=== PATIENT | female | born 1995 | race Caucasian/White ===

== ENCOUNTER 2017-06-04 15:56 | Observation (INO) | payer MEDICAID ==
[~2017-06-04] VITALS: Ht 160 cm; Wt 79.4 kg
[2017-06-04] MEDS ORDERED: PREN-380 PO (17:39)
== END 2017-06-04 21:11 | disposition home or self-care (01) ==
LOC: MLD 15:56
PROVIDERS: ADMIT Obstetrics & Gynecology; ATTEND Obstetrics & Gynecology
DX: O26.893 Other specified pregnancy related conditions, third trimester (principal); R10.9 Unspecified abdominal pain; Z3A.38 38 weeks gestation of pregnancy
CPT/HCPCS: 76805; G0378; Q0092; 59025; 81000

== ENCOUNTER 2017-06-11 16:07 | Inpatient (IN) | payer MEDICAID ==
[~2017-06-11] VITALS: Ht 160 cm; Wt 79.4 kg
[~2017-06-11 16:07] MED LIST: PREN-380 PO
[2017-06-11] MEDS ORDERED: PREN-546 PO (16:47)
[2017-06-11] MEDS ORDERED: AMPICILLIN 2,000 MG in NACL 0.9% MINI-BAG PLUS 100 ML IV SCH (17:15)
[2017-06-11 17:24] VITALS: BP 116/78
[2017-06-11] MEDS ORDERED: AMPICILLIN 2,000 MG VIAL ONE (18:53)
[2017-06-11 18:57] LABS: BASOPHILS # (AUTO) 0.2 K/uL (0.00-0.22); BASOPHILS % (AUTO) 1.3 % (0.0-2.0); EOSINOPHILS # (AUTO) 0.1 K/uL (0-0.4); EOSINOPHILS % (AUTO) 0.9 % (0.0-4.0); HEMATOCRIT 35.6 % (36-48); HEMOGLOBIN 12.2 g/dL (12.0-16.0); LYMPHOCYTES # (AUTO) 2.1 K/uL (2.5-16.5); LYMPHOCYTES % (AUTO) 17.1 % (20.5-51.1); MEAN CORPUSCULAR HEMOGLOBIN 30 pg (27-31); MEAN CORPUSCULAR HGB CONC 34 g/dL (33-37); MEAN CORPUSCULAR VOLUME 87 fL (80-94); MONOCYTES # (AUTO) 0.7 K/uL (0.8-1.0); NEUTROPHILS # (AUTO) 8.9 K/uL (1.8-7.7); NEUTROPHILS % (AUTO) 74.7 % (42.2-75.2); PLATELET COUNT (AUTO) 190 K/uL (140-450); RED BLOOD CELL COUNT(AUTO) 4.09 MIL/uL (4.20-5.40); RED CELL DISTRIBUTION WIDTH 12.3 % (11.6-13.7)
[2017-06-11] MEDS: LACTATED RINGERS 1,000 ML IV SCH (19:05)
[2017-06-11 19:32] LABS: ANION GAP 14.3 (8-16); CARBON DIOXIDE 22.7 mmol/L (21-32); CREATININE 0.6 mg/dL (0.6-1.3)
[2017-06-11 19:39] LABS: ALBUMIN 2.9 g/dL (3.4-5.0); TOTAL BILIRUBIN 0.1 mg/dL (0.0-1.0)
[2017-06-11] MEDS ORDERED: MISOPROSTOL 25 MCG TAB VG SCH (19:40)
[2017-06-11] MEDS ORDERED: MISOPROSTOL 25 MCG TAB ONE (19:45)
[2017-06-11] MEDS ORDERED: OXYTOCIN 20 UNITS in LACTATED RINGERS 1,000 ML IV SCH (20:02)
[2017-06-11 20:29] LABS: APPEARANCE,URINE CLEAR (CLEAR); BILIRUBIN,URINE NEGATIVE (NEGATIVE); BLOOD, URINE NEGATIVE (NEGATIVE); COLOR,URINE YELLOW (YELLOW); LEUKOCYTE ESTERASE ,URINE NEGATIVE (NEGATIVE); NITRITE, URINE NEGATIVE (NEGATIVE); UGLUCOSE NEGATIVE (NEGATIVE)
[2017-06-11] MEDS ORDERED: AMPICILLIN 1,000 MG VIAL ONE (23:06)
[2017-06-11] MEDS: AMPICILLIN 1,000 MG in NACL 0.9% MINI-BAG PLUS 50 ML IV SCH (23:10)
[2017-06-12] MEDS: LACTATED RINGERS 1,000 ML IV SCH ×3 (01:13→15:21)
[2017-06-12] MEDS ORDERED: AMPICILLIN 1,000 MG VIAL ONE ×4 (02:51→14:51)
[2017-06-12] MEDS: AMPICILLIN 1,000 MG in NACL 0.9% MINI-BAG PLUS 50 ML IV SCH ×4 (02:59→15:03)
[2017-06-12] MEDS ORDERED: OXYTOCIN 20 UNITS/LR PREMIX 1,000 ML IV ONE (03:39)
[2017-06-12] MEDS ORDERED: NALBUPHINE HYDROCHLORIDE 10 MG/ML VIAL ONE ×2 (08:49→13:13)
[2017-06-12] MEDS ORDERED: PROMETHAZINE 25 MG/ML VIAL ONE ×2 (08:50→13:14)
[2017-06-12] MEDS: NALBUPHINE HYDROCHLORIDE 10 MG/ML VIAL IVP PRN ×2 (08:59→13:21)
[2017-06-12] MEDS: PROMETHAZINE 25 MG/ML VIAL IVP PRN ×2 (09:00→13:20)
[2017-06-12] MEDS ORDERED: BUPIVACAINE 0.125%/NS PREMIX 250 ML ONE (13:40)
[2017-06-12] MEDS ORDERED: BUPIVACAINE 0.125%/NS PREMIX 250 ML EPI SCH (14:30)
[2017-06-12] MEDS ORDERED: OXYTOCIN 10 UNITS/ML VIAL ONE (20:08)
--- NOTE | 2017-06-13 10:47 | NUR ---
PATIENT HAS BEEN SCREENED AND CATEGORIZED LOW NUTRITION RISK. PATIENT WILL BE SEEN WITHIN 7 DAYS OF ADMISSION. 06/18/17 CHIQUIS KIM MBA, RD
[2017-06-13] MEDS ORDERED: OXYTOCIN 20 UNITS in LACTATED RINGERS 1,000 ML IV SCH (16:34)
[2017-06-13] MEDS ORDERED: oxyCODONE/APAP 5/325 MG 1 TAB TAB PO PRN (16:35)
[2017-06-13] MEDS ORDERED: BENZOCAINE/MENTHOL 20%-0.5% 60 GM CAN TP PRN (16:35)
[2017-06-13] MEDS ORDERED: MEASLES, MUMPS, AND RUBELLA 1 VIAL SQVAC PRN (16:35)
[2017-06-13] MEDS ORDERED: ACETAMINOPHEN 325 MG TAB PO PRN (16:35)
[2017-06-13] MEDS ORDERED: SODIUM PHOSPHATE 118 ML ENEM RC PRN (16:35)
[2017-06-13] MEDS ORDERED: BISACODYL 5 MG TABEC PO PRN (16:35)
[2017-06-13] MEDS ORDERED: INFLUENZA VIRUS VACCINE QUAD 0.5 ML SYR IMVAC SCH (21:10)
[2017-06-14 08:09] LABS: BASOPHILS # (AUTO) 0.2 K/uL (0.00-0.22); BASOPHILS % (AUTO) 1.2 % (0.0-2.0); EOSINOPHILS # (AUTO) 0.2 K/uL (0-0.4); EOSINOPHILS % (AUTO) 1.6 % (0.0-4.0); HEMATOCRIT 35.5 % (36-48); HEMOGLOBIN 12.1 g/dL (12.0-16.0); LYMPHOCYTES # (AUTO) 2.6 K/uL (2.5-16.5); LYMPHOCYTES % (AUTO) 20.6 % (20.5-51.1); MEAN CORPUSCULAR HEMOGLOBIN 30 pg (27-31); MEAN CORPUSCULAR HGB CONC 34 g/dL (33-37); MEAN CORPUSCULAR VOLUME 88 fL (80-94); MONOCYTES # (AUTO) 0.6 K/uL (0.8-1.0); NEUTROPHILS # (AUTO) 9.1 K/uL (1.8-7.7); NEUTROPHILS % (AUTO) 71.6 % (42.2-75.2); PLATELET COUNT (AUTO) 180 K/uL (140-450); RED BLOOD CELL COUNT(AUTO) 4.04 MIL/uL (4.20-5.40); RED CELL DISTRIBUTION WIDTH 12.8 % (11.6-13.7); WHITE BLOOD COUNT (AUTO) 12.7 K/uL (4.8-10.8)
== END 2017-06-14 15:30 | disposition home or self-care (01) | DRG 560 ==
LOC: MLD 16:07 → MFCC 06-12 23:45
PROVIDERS: ADMIT Obstetrics & Gynecology; ATTEND Obstetrics & Gynecology
PROC: 10E0XZZ Delivery of Products of Conception, External Approach (ICD-10-PCS; principal; 2017-06-12)
PROC: 10907ZC Drainage of Amniotic Fluid, Therapeutic from Products of Conception, Via Natural or Artificial Opening (ICD-10-PCS; 2017-06-12)
PROC: 3E033VJ Introduction of Other Hormone into Peripheral Vein, Percutaneous Approach (ICD-10-PCS; 2017-06-12)
PROC: 00HU33Z Insertion of Infusion Device into Spinal Canal, Percutaneous Approach (ICD-10-PCS; 2017-06-12)
PROC: 3E0R3BZ Introduction of Anesthetic Agent into Spinal Canal, Percutaneous Approach (ICD-10-PCS; 2017-06-12)
PROC: 3E0234Z Introduction of Serum, Toxoid and Vaccine into Muscle, Percutaneous Approach (ICD-10-PCS; 2017-06-13)
PROC: 3E0234Z Introduction of Serum, Toxoid and Vaccine into Muscle, Percutaneous Approach (ICD-10-PCS; 2017-06-13)
DX: O99.824 Streptococcus B carrier state complicating childbirth (principal); Z23 Encounter for immunization; O71.4 Obstetric high vaginal laceration alone; Z3A.39 39 weeks gestation of pregnancy; Z37.0 Single live birth; Z83.3 Family history of diabetes mellitus
CPT/HCPCS: 36415; 51702; 59200; 59409; 76815; 80053; 81003; 85025; 86592; 86762; 86886; 86900; 86901; 90658; 90715; J0290; J2300; J2550; J2590; J3490; J7030; J7120; Q0092

== ENCOUNTER 2018-08-19 14:07 | Observation (INO) | payer OTHER ==
[~2018-08-19] VITALS: Ht 162.6 cm; Wt 73.5 kg
[~2018-08-19 14:07] MED LIST changes: -PREN-380 PO; +PREN-546 PO
[2018-08-19 14:36] VITALS: BP 109/68
== END 2018-08-19 16:20 | disposition home or self-care (01) ==
LOC: MLD 14:07
PROVIDERS: ADMIT Obstetrics & Gynecology; ATTEND Obstetrics & Gynecology
DX: O26.893 Other specified pregnancy related conditions, third trimester (principal); R10.9 Unspecified abdominal pain; Z3A.38 38 weeks gestation of pregnancy
CPT/HCPCS: 59025; 76819; 81000; G0378; Q0092

== ENCOUNTER 2018-08-26 13:58 | Inpatient (IN) | payer OTHER ==
[~2018-08-26] VITALS: Ht 162.6 cm; Wt 72.6 kg
[2018-08-26] MEDS ORDERED: CARBOPROST 250 MCG/ML AMP IM PRN (14:20)
[2018-08-26] MEDS ORDERED: OXYTOCIN 10 UNITS/ML VIAL IM SCH (14:20)
[2018-08-26] MEDS ORDERED: PROMETHAZINE 25 MG/ML VIAL IVP PRN (14:20)
[2018-08-26] MEDS ORDERED: METHYLERGONOVINE 0.2 MG/ML AMP IM PRN (14:20)
[2018-08-26] MEDS ORDERED: NALBUPHINE 10 MG/ML AMP IVP PRN ×2 (14:20→20:55)
[2018-08-26] MEDS ORDERED: MISOPROSTOL 25 MCG TAB VG PRN (14:25)
[2018-08-26] MEDS ORDERED: AMPICILLIN 2,000 MG in NACL 0.9% MINI-BAG PLUS 100 ML IV SCH (15:00)
[2018-08-26 15:54] LABS: BASOPHILS % (AUTO) 0.2 % (0.0-2.0); EOSINOPHILS # (AUTO) 0.1 K/uL (0-0.4); EOSINOPHILS % (AUTO) 0.8 % (0.0-4.0); HEMATOCRIT 34.5 % (36-48); LYMPHOCYTES % (AUTO) 18.2 % (20.5-51.1); MEAN CORPUSCULAR HEMOGLOBIN 30 pg (27-31); MEAN CORPUSCULAR HGB CONC 35 g/dL (33-37); MEAN CORPUSCULAR VOLUME 86.1 fL (80-94); MONOCYTES # (AUTO) 0.6 K/uL (0.8-1.0); MONOCYTES % (AUTO) 5.2 % (1.7-9.3); NEUTROPHILS # (AUTO) 8.2 K/uL (1.8-7.7); NEUTROPHILS % (AUTO) 75.6 % (42.2-75.2); PLATELET COUNT (AUTO) 176 K/uL (140-450); RED BLOOD CELL COUNT(AUTO) 4.01 MIL/uL (4.20-5.40); RED CELL DISTRIBUTION WIDTH 13.2 % (11.6-13.7); WHITE BLOOD COUNT (AUTO) 10.9 K/uL (4.8-10.8)
[2018-08-26 16:10] LABS: APPEARANCE,URINE CLEAR (CLEAR); BILIRUBIN,URINE NEGATIVE (NEGATIVE); BLOOD, URINE NEGATIVE (NEGATIVE); COLOR,URINE YELLOW (YELLOW); LEUKOCYTE ESTERASE ,URINE NEGATIVE (NEGATIVE); NITRITE, URINE NEGATIVE (NEGATIVE); UGLUCOSE NEGATIVE (NEGATIVE)
[2018-08-26] MEDS: LACTATED RINGERS 1,000 ML IV SCH (16:21)
[2018-08-26] MEDS ORDERED: AMPICILLIN 2,000 MG VIAL ONE (16:23)
[2018-08-26 16:26] LABS: BARBITURATE, URINE NEG. ng/ml (NEG <=200); BENZODIAZEPINE, URINE NEG. ng/mL (NEG <=200); CANNABINOID, URINE NEG. ng/mL (NEG <=50); COCAINE, URINE NEG. ng/mL (NEG <=300); OPIATE, URINE NEG. ng/mL (NEG <=2000); PHENCYCLIDINE SCREEN,URINE NEG. ng/mL (NEG <=25)
[2018-08-26 16:28] LABS: ALBUMIN 2.9 g/dL (3.4-5.0); ANION GAP 13.7 (8-16); CARBON DIOXIDE 22.7 mmol/L (21-32); CREATININE 0.5 mg/dL (0.6-1.3); POTASSIUM 3.4 mmol/L (3.5-5.1); TOTAL BILIRUBIN 0.2 mg/dL (0.0-1.0)
[2018-08-26] MEDS ORDERED: AMPICILLIN 1,000 MG VIAL ONE ×2 (20:04→23:30)
[2018-08-26] MEDS ORDERED: MISOPROSTOL 25 MCG TAB ONE (20:09)
[2018-08-26] MEDS: AMPICILLIN 1,000 MG in NACL 0.9% MINI-BAG PLUS 50 ML IV SCH (20:21)
[2018-08-26] MEDS ORDERED: OXYTOCIN 20 UNITS in LACTATED RINGERS 1,000 ML IV SCH (20:51)
[2018-08-27] MEDS: AMPICILLIN 1,000 MG in NACL 0.9% MINI-BAG PLUS 50 ML IV SCH ×6 (00:17→20:35)
[2018-08-27] MEDS: LACTATED RINGERS 1,000 ML IV SCH ×2 (01:46→12:55)
[2018-08-27] MEDS ORDERED: AMPICILLIN 1,000 MG VIAL ONE ×5 (03:58→20:40)
[2018-08-27] MEDS ORDERED: MISOPROSTOL 25 MCG TAB ONE (22:04)
[2018-08-27] MEDS ORDERED: MISOPROSTOL 25 MCG TAB VG ONE (22:40)
[2018-08-28] MEDS: AMPICILLIN 1,000 MG in NACL 0.9% MINI-BAG PLUS 50 ML IV SCH ×3 (00:33→09:01)
[2018-08-28] MEDS ORDERED: AMPICILLIN 1,000 MG VIAL ONE ×3 (00:39→09:02)
[2018-08-28] MEDS ORDERED: OXYTOCIN 20 UNITS/LR PREMIX 1,000 ML IV ONE (03:07)
--- NOTE | 2018-08-28 06:21 | NUR ---
PATIENT HAS BEEN SCREENED AND CATEGORIZED LOW NUTRITION RISK. PATIENT WILL BE SEEN WITHIN 7 DAYS OF ADMISSION. 09/02/18 CLYDE OWEN MS, RDN
[2018-08-28] MEDS ORDERED: NALBUPHINE 10 MG/ML AMP ONE (08:53)
[2018-08-28] MEDS ORDERED: LIDOCAINE 1% 500 MG/50 ML VIAL ONE (08:59)
[2018-08-28] MEDS ORDERED: OXYTOCIN 10 UNITS/ML VIAL ONE (08:59)
[2018-08-28] MEDS: LACTATED RINGERS 1,000 ML IV SCH (09:03)
[2018-08-28] MEDS ORDERED: IBUPROFEN 600 MG TAB PO PRN (21:20)
[2018-08-28] MEDS ORDERED: BISACODYL 5 MG TABEC PO PRN (21:20)
[2018-08-28] MEDS ORDERED: MEASLES, MUMPS, AND RUBELLA 1 VIAL SQVAC PRN (21:20)
[2018-08-28] MEDS ORDERED: ACETAMINOPHEN 325 MG TAB PO PRN (21:20)
[2018-08-28] MEDS ORDERED: DOCUSATE SODIUM 100 MG GELCAP PO PRN (21:20)
[2018-08-29 09:16] LABS: BASOPHILS % (AUTO) 0.3 % (0.0-2.0); EOSINOPHILS # (AUTO) 0.1 K/uL (0-0.4); EOSINOPHILS % (AUTO) 0.9 % (0.0-4.0); HEMATOCRIT 33.6 % (36-48); HEMOGLOBIN 11.6 g/dL (12.0-16.0); LYMPHOCYTES # (AUTO) 2.3 K/uL (2.5-16.5); LYMPHOCYTES % (AUTO) 21.9 % (20.5-51.1); MEAN CORPUSCULAR HEMOGLOBIN 30 pg (27-31); MEAN CORPUSCULAR HGB CONC 34 g/dL (33-37); MEAN CORPUSCULAR VOLUME 86.8 fL (80-94); MONOCYTES # (AUTO) 0.5 K/uL (0.8-1.0); NEUTROPHILS # (AUTO) 7.6 K/uL (1.8-7.7); NEUTROPHILS % (AUTO) 71.9 % (42.2-75.2); PLATELET COUNT (AUTO) 158 K/uL (140-450); RED BLOOD CELL COUNT(AUTO) 3.87 MIL/uL (4.20-5.40); RED CELL DISTRIBUTION WIDTH 13.1 % (11.6-13.7); WHITE BLOOD COUNT (AUTO) 10.6 K/uL (4.8-10.8)
[2018-08-30] MEDS ORDERED: BENZOCAINE/MENTHOL 20%-0.5% 60 GM CAN TP PRN (13:45)
== END 2018-08-30 14:15 | disposition home or self-care (01) | DRG 560 ==
LOC: MLD 13:58 → MFCC 08-28 12:20
PROVIDERS: ADMIT Obstetrics & Gynecology; ATTEND Obstetrics & Gynecology
PROC: 10E0XZZ Delivery of Products of Conception, External Approach (ICD-10-PCS; principal; 2018-08-28)
PROC: 3E033VJ Introduction of Other Hormone into Peripheral Vein, Percutaneous Approach (ICD-10-PCS; 2018-08-28)
PROC: 3E0P7VZ Introduction of Hormone into Female Reproductive, Via Natural or Artificial Opening (ICD-10-PCS; 2018-08-28)
DX: O99.824 Streptococcus B carrier state complicating childbirth (principal); O62.3 Precipitate labor; Z37.0 Single live birth; Z3A.39 39 weeks gestation of pregnancy; Z83.3 Family history of diabetes mellitus; Z84.1 Family history of disorders of kidney and ureter
CPT/HCPCS: 36415; 59200; 59409; 76815; 80053; 80305; 81003; 85025; 86592; 86886; 86900; 86901; C1758; J0290; J2001; J2300; J2590; J7120; Q0092

== ENCOUNTER 2020-05-29 04:25 | Inpatient (IN) | payer OTHER, SELFPAY ==
[~2020-05-29] VITALS: Ht 162.6 cm; Wt 72.6 kg
[2020-05-29] MEDS ORDERED: OXYTOCIN 10 UNITS/ML VIAL IM SCH (05:00)
[2020-05-29] MEDS ORDERED: METHYLERGONOVINE 0.2 MG/ML AMP IM PRN (05:00)
[2020-05-29] MEDS ORDERED: PROMETHAZINE 25 MG/ML VIAL IVP PRN (05:00)
[2020-05-29] MEDS ORDERED: LACTATED RINGERS 1,000 ML IV SCH (05:00)
[2020-05-29] MEDS ORDERED: OXYTOCIN 20 UNITS in LACTATED RINGERS 1,000 ML IV SCH ×2 (05:00→13:20)
[2020-05-29 05:25] VITALS: BP 128/77
[2020-05-29 05:26] LABS: APPEARANCE,URINE CLEAR (CLEAR); BILIRUBIN,URINE NEGATIVE (NEGATIVE); BLOOD, URINE NEGATIVE (NEGATIVE); COLOR,URINE YELLOW (YELLOW); LEUKOCYTE ESTERASE ,URINE NEGATIVE (NEGATIVE); NITRITE, URINE NEGATIVE (NEGATIVE); UGLUCOSE NEGATIVE (NEGATIVE)
[2020-05-29] MEDS ORDERED: NALBUPHINE 10 MG/ML AMP ONE (06:46)
[2020-05-29 06:51] LABS: BASOPHILS % (AUTO) 0.2 % (0.0-2.0); EOSINOPHILS # (AUTO) 0.1 K/uL (0-0.4); EOSINOPHILS % (AUTO) 0.5 % (0.0-4.0); HEMATOCRIT 32.9 % (36-48); LYMPHOCYTES # (AUTO) 2.1 K/uL (2.5-16.5); LYMPHOCYTES % (AUTO) 14.8 % (20.5-51.1); MEAN CORPUSCULAR HEMOGLOBIN 29 pg (27-31); MEAN CORPUSCULAR HGB CONC 33 g/dL (33-37); MEAN CORPUSCULAR VOLUME 87.9 fL (80-94); MONOCYTES # (AUTO) 0.8 K/uL (0.8-1.0); MONOCYTES % (AUTO) 5.7 % (1.7-9.3); NEUTROPHILS % (AUTO) 78.8 % (42.2-75.2); PLATELET COUNT (AUTO) 169 K/uL (140-450); RED BLOOD CELL COUNT(AUTO) 3.74 MIL/uL (4.20-5.40); RED CELL DISTRIBUTION WIDTH 13.7 % (11.6-13.7)
[2020-05-29 07:08] LABS: ALBUMIN 2.9 g/dL (3.4-5.0); ANION GAP 16.8 (8-16); CARBON DIOXIDE 21.7 mmol/L (21-32); CREATININE 0.6 mg/dL (0.6-1.3); POTASSIUM 3.5 mmol/L (3.5-5.1); TOTAL BILIRUBIN 0.1 mg/dL (0.0-1.0)
[2020-05-29] MEDS ORDERED: OXYTOCIN 20 UNITS/LR PREMIX 0 ML IV ONE (08:22)
[2020-05-29] MEDS ORDERED: OXYTOCIN 20 UNITS/LR PREMIX 1,000 ML IV ONE (08:23)
[2020-05-29] MEDS ORDERED: LIDOCAINE 1% 500 MG/50 ML VIAL ONE (08:24)
--- NOTE | 2020-05-29 09:00 | NUR ---
PATIENT HAS BEEN SCREENED AND CATEGORIZED LOW NUTRITION RISK. PATIENT WILL BE SEEN WITHIN 7 DAYS OF ADMISSION. 06/04/[address]
[2020-05-29] MEDS ORDERED: IBUPROFEN 600 MG TAB PO PRN (13:20)
[2020-05-29] MEDS ORDERED: bisacodyL 5 MG TABEC PO PRN (13:20)
[2020-05-29] MEDS ORDERED: MEASLES, MUMPS, AND RUBELLA 1 VIAL SQVAC PRN (13:20)
[2020-05-29] MEDS ORDERED: DOCUSATE SODIUM 100 MG GELCAP PO PRN (13:20)
[2020-05-30 08:54] LABS: BASOPHILS % (AUTO) 0.3 % (0.0-2.0); EOSINOPHILS # (AUTO) 0.1 K/uL (0-0.4); EOSINOPHILS % (AUTO) 0.8 % (0.0-4.0); HEMATOCRIT 31.3 % (36-48); HEMOGLOBIN 10.7 g/dL (12.0-16.0); LYMPHOCYTES # (AUTO) 2.2 K/uL (2.5-16.5); MEAN CORPUSCULAR HEMOGLOBIN 30 pg (27-31); MEAN CORPUSCULAR HGB CONC 34 g/dL (33-37); MEAN CORPUSCULAR VOLUME 87.2 fL (80-94); MONOCYTES # (AUTO) 0.7 K/uL (0.8-1.0); MONOCYTES % (AUTO) 6.1 % (1.7-9.3); NEUTROPHILS # (AUTO) 8.2 K/uL (1.8-7.7); NEUTROPHILS % (AUTO) 72.8 % (42.2-75.2); PLATELET COUNT (AUTO) 151 K/uL (140-450); RED BLOOD CELL COUNT(AUTO) 3.59 MIL/uL (4.20-5.40); RED CELL DISTRIBUTION WIDTH 13.7 % (11.6-13.7); WHITE BLOOD COUNT (AUTO) 11.2 K/uL (4.8-10.8)
[2020-05-30] MEDS: ACETAMINOPHEN 325 MG TAB PO PRN ×2 (11:10→11:13)
[2020-05-30] MEDS ORDERED: FERR325E14 PO (14:01)
[2020-05-30] MEDS ORDERED: ACET-9800 PO (14:02)
== END 2020-05-30 17:45 | disposition home or self-care (01) | DRG 560 ==
LOC: MFCC 04:25
PROVIDERS: ADMIT Obstetrics & Gynecology; ATTEND Obstetrics & Gynecology
PROC: 10E0XZZ Delivery of Products of Conception, External Approach (ICD-10-PCS; principal; 2020-05-29)
PROC: 3E0R3BZ Introduction of Anesthetic Agent into Spinal Canal, Percutaneous Approach (ICD-10-PCS; 2020-05-29)
PROC: 00HU33Z Insertion of Infusion Device into Spinal Canal, Percutaneous Approach (ICD-10-PCS; 2020-05-29)
DX: O80 Encounter for full-term uncomplicated delivery (principal); Z37.0 Single live birth; Z20.822 Contact with and (suspected) exposure to COVID-19; Z3A.40 40 weeks gestation of pregnancy
CPT/HCPCS: 36415; 51702; 59409; 80053; 81003; 85025; 86592; 86886; 86900; 86901; J2001; J2300; J2550; J2590; J7120; U0003